=== PATIENT | female | born 1990 | race Caucasian/White ===

== ENCOUNTER 2016-05-09 02:01 | Emergency (ER) | payer OTHER ==
[2016-05-09 02:09] VITALS: BP 149/86; PULSE 76; RESP 18; TEMP 97.7
--- NOTE | 2016-05-09 03:07 | ED ---
ENT HPI - General Chief complaint: ENT Stated complaint: Swollen Lymph Nodes Time Seen by Provider: 05/09/16 02:13 Source: patient, RN notes reviewed Mode of arrival: ambulatory Limitations: no limitations - History of Present Illness Initial comments: Patient is a 25-year-old female presents emergency room for evaluation of bilateral anterior cervical lymph node swelling. Patient states she woke up in the middle the night and noticed swelling of her bilateral lymph nodes. Patient states she's never had this happen before. Patient states this worried her so she thought she should be evaluated. Patient denies any pain while palpating her lymph nodes. Patient denies any trouble swallowing. Patient denies any fevers, chills, headache, dizziness, nausea, vomiting, throat pain. Patient denies any body aches. Patient states she is just having bilateral lymph node swelling. Patient denies ear pain. Patient denies any significant past medical history. Patient denies being on any medications. Patient denies any rashes. - Related Data Previous Rx's Medication Instructions Recorded Azithromycin [Zithromax Z-pack] 250 mg PO DIRECTED #6 tab 05/09/16 Allergies Allergy/AdvReac Type Severity Reaction Status Date / Time No Known Allergies Allergy Verified 05/09/16 02:09 Review of Systems ROS Statement: Those systems with pertinent positive or pertinent negative responses have been documented in the HPI. ROS Other: All systems not noted in ROS Statement are negative. Past Medical History Past Medical History: No Reported History History of Any Multi-Drug Resistant Organisms: None Reported Past Surgical History: No Surgical Hx Reported Past Psychological History: No Psychological Hx Reported Smoking Status: Light tobacco smoker Past Alcohol Use History: Rare Past Drug Use History: None Reported General Exam - General Exam Comments Initial Comments: Sitting in exam room, no acute distress. Limitations: no limitations General appearance: alert, in no apparent distress Head exam: Present: atraumatic, normocephalic, normal inspection Eye exam: Present: normal appearance, PERRL, EOMI Pupils: Present: normal accommodation ENT exam: Present: normal exam, normal oropharynx, mucous membranes moist, TM's normal bilaterally, normal external ear exam Neck exam: Present: normal inspection, full ROM, lymphadenopathy (Bilateral anterior cervical). Absent: tenderness Respiratory exam: Present: normal lung sounds bilaterally. Absent: respiratory distress Cardiovascular Exam: Present: regular rate, normal rhythm, normal heart sounds Extremities exam: Present: normal inspection Back exam: Present: normal inspection Neurological exam: Present: alert, oriented X3, CN II-XII intact, normal gait Psychiatric exam: Present: normal affect, normal mood Skin exam: Present: warm, dry, intact, normal color. Absent: rash Course Vital Signs 05/09/16 02:04 Temperature 97.7 F Pulse Rate 76 Respiratory 18 Rate Blood Pressure 149/86 O2 Sat by Pulse 98 Oximetry Medical Decision Making - Medical Decision Making Patient is a 25-year-old female presents to the emergency room for evaluation of bilateral anterior cervical lymph nodes swelling. Patient has no symptoms. Patient's head is stable. Patient is afebrile. Will place patient on antibiotics prophylactically and have her follow-up with her primary care provider for further evaluation. Patient states she understands that was discussed with her. Return parameters discussed. Case discussed with Dr. Robison. Disposition Clinical Impression: Anterior cervical lymphadenopathy Disposition: HOME SELF-CARE Condition: Good Instructions: Lymphadenopathy (ED) Additional Instructions: Take antibiotics as directed. Please follow up with primary care provider for reevaluation in 24-48 hours. If any new symptom arises, symptoms worsen or fever develops, return to ER as soon as possible. Prescriptions: Azithromycin [Zithromax Z-pack] 250 mg PO DIRECTED #6 tab Referrals: None,Stated [Primary Care Provider] - 1-2 days Time of Disposition: 03:05
== END 2016-05-09 03:10 | disposition home or self-care (01) ==
LOC: EC 02:01
DX: R59.0 Localized enlarged lymph nodes (principal); F17.200 Nicotine dependence, unspecified, uncomplicated
CPT/HCPCS: 99282

== ENCOUNTER 2016-08-17 23:59 | Emergency (ER) | payer OTHER ==
[2016-08-18 00:09] VITALS: BP 140/80; PULSE 67; RESP 18; TEMP 97
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
== END 2016-08-18 00:53 | disposition home or self-care (01) ==
LOC: EC 23:59
DX: T23.201A Burn of second degree of right hand, unspecified site, initial encounter (principal); F17.200 Nicotine dependence, unspecified, uncomplicated; X08.8XXA Exposure to other specified smoke, fire and flames, initial encounter
CPT/HCPCS: 99283

== ENCOUNTER 2017-04-21 04:21 | Emergency (ER) | payer OTHER ==
[2017-04-21 04:28] VITALS: BP 112/74; PULSE 113; RESP 20; TEMP 99
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
== END 2017-04-21 05:31 | disposition home or self-care (01) ==
LOC: EC 04:21
DX: S61.412A Laceration without foreign body of left hand, initial encounter (principal); F17.200 Nicotine dependence, unspecified, uncomplicated; Y08.09XA Assault by strike by other specified type of sport equipment, initial encounter; Y92.009 Unspecified place in unspecified non-institutional (private) residence as the place of occurrence of the external cause
CPT/HCPCS: 12002; 99283